=== PATIENT | male | born 1965 | race Caucasian/White ===

== ENCOUNTER 2016-06-26 05:47 | Day surgery (SDC) | payer BC ==
--- NOTE | ~2016-06-26 | EGD ---
EGD REPORT [facility] [address] [address] NAME: TIMO TERRY : 69 STATUS : REG [facility]#: [id number] AGE: 50 ADM/REG DATE : 06/26/16 MR#: [id number] REPORT SERV DATE: 06/26/16 DICTATED BY: MILY GODINEZ DATE: 06/26/16 REPORT STATUS : Draft [facility]ANSCRIBED BY: [facility] DATE: 06/26/16 Endoscopy Center Patient Name: Timo Terry Date of : 1965 Attending MD: MILY GODINEZ, Procedure Date No Time: 06/26/2016 Procedure: Upper Device-Assisted Enteroscopy without Fluoroscopy Indications: Abnormal abdominal CT Referring MD: Chandana Garcia Medicines: Monitored Anesthesia Care Complications: No immediate complications. Estimated blood loss: None. Procedure: Pre-Anesthesia Assessment: - ASA Grade Assessment: III - A patient with severe systemic disease. After obtaining informed consent, the endoscope was passed under direct vision using the balloon-assisted technique. Throughout the procedure, the patient's blood pressure, pulse, and oxygen saturations were monitored continuously. The SIF Q180 [id number] was introduced through the mouth and advanced to the mid-jejunum. Findings: The esophagus was normal. A guidewire was placed and the scope was withdrawn. Dilation was performed with a Savary dilator with no resistance at 54 Fr. A 3 cm hiatus hernia was present. Multiple 10 to 20 mm sessile polyps with no bleeding and no stigmata of recent bleeding were found in the gastric body. Biopsies were taken with a cold forceps for histology. Verification of patient identification for the specimen was done. Estimated blood loss was minimal. The exam of the stomach was otherwise normal. The examined duodenum was normal. There was no evidence of significant pathology in the proximal jejunum and in the mid-jejunum. Biopsies were taken with a cold forceps for histology. Verification of patient identification for the specimen was done. Estimated blood loss was minimal. Impression: - Normal esophagus. - Hiatus hernia. - Multiple gastric polyps. Biopsied. - Normal examined duodenum. - The examined portion of the jejunum was normal. Biopsied. Recommendation: - Return to previous diet. EGD REPORT [address] [address] NAME: TIMO TERRY : 69 STATUS : REG [facility] PAT#: [id number] AGE: 50 ADM/REG DATE : 06/26/16 MR#: [id number] REPORT SERV DATE: 06/26/16 DICTATED BY: MILY GODINEZ DATE: 06/26/16 REPORT STATUS : Draft TRANSCRIBED BY: [employer] DATE: 06/26/16 - Continue present medications. - Await pathology results. - Return to GI clinic in 3 weeks. Procedure Code(s): --- Professional --- 62767, Esophagogastroduodenoscopy, flexible, transoral; with insertion of guide wire followed by passage of dilator(s) through esophagus over guide wire 07047, Small intestinal endoscopy, enteroscopy beyond second portion of duodenum, not including ileum; with biopsy, single or multiple Diagnosis Code(s): --- Professional --- K44.9, Diaphragmatic hernia without obstruction or gangrene K31.7, Polyp of stomach and duodenum R93.3, Abnormal findings on diagnostic imaging of other parts of digestive tract CPT copyright 2013 [employer]. All rights reserved. The codes documented in this report are preliminary and upon wrapping clerk review may be revised to meet current compliance requirements. MILY GODINEZ, 06/26/2016 7:44 AM Number of Addenda: 0 Note Initiated On: 06/26/2016 7:02 AM Scope Withdrawal Time 0 hours 0 minutes 0 seconds [id number] [address]
[~2016-06-26 05:47] MED LIST: FARXIGA5 PO; GLUCOPHAGE1000 MG PO; GLUCOTRO10 PO; LYRICA150 MG PO; NEXIUM40 PO
[2016-06-27] MEDS ORDERED: GLUCOTROL5 PO (01:21)
[2016-06-27] MEDS ORDERED: LYRICA150 MG PO (01:21)
[2016-06-27] MEDS ORDERED: GLUCOPHAGE1000 MG PO (01:21)
[2016-06-27] MEDS ORDERED: NEUR100 PO (01:22)
[2016-06-27] MEDS ORDERED: NEXIUM20 M1 PO (01:22)
[2016-06-27] MEDS ORDERED: FARXIGA5 PO (01:22)
[2016-06-27] MEDS ORDERED: LINZESS 145 M145 MCG PO (01:25)
== END 2016-06-26 23:59 | disposition home or self-care (01) ==
LOC: DMU 05:47
PROVIDERS: Internal Medicine Gastroenterology
PROC: 0DBA8ZX Excision of Jejunum, Via Natural or Artificial Opening Endoscopic, Diagnostic (ICD-10-PCS; 2016-06-26)
PROC: 0D758ZZ Dilation of Esophagus, Via Natural or Artificial Opening Endoscopic (ICD-10-PCS; principal; 2016-06-26 07:00)
PROC: 0DB68ZX Excision of Stomach, Via Natural or Artificial Opening Endoscopic, Diagnostic (ICD-10-PCS; 2016-06-26 07:00)
DX: K31.7 Polyp of stomach and duodenum (principal); K44.9 Diaphragmatic hernia without obstruction or gangrene; K21.9 Gastro-esophageal reflux disease without esophagitis; E11.40 Type 2 diabetes mellitus with diabetic neuropathy, unspecified; N20.0 Calculus of kidney; Z90.49 Acquired absence of other specified parts of digestive tract; Z79.84 Long term (current) use of oral hypoglycemic drugs; Z79.899 Other long term (current) drug therapy; Z98.890 Other specified postprocedural states
CPT/HCPCS: 82962; 88305; J2405; J2543

== ENCOUNTER 2016-06-26 16:26 | Observation (INO) | payer BC ==
--- NOTE | ~2016-06-26 | DS ---
Discharge Summary [facility] [address] [place]. [address] NAME: TIMO TERRY : 69 STATUS : DIS Farhana PAT#: [id number] AGE: 50 ADM/REG DATE : 06/27/16 MR#: [id number] REPORT SERV DATE: 06/29/16 DICTATED BY: FAIZAN SABILLON DATE: 06/28/16 REPORT STATUS : Draft TRANSCRIBED BY: MODL DATE: 06/28/16 ADMISSION DATE: 06/27/2016 DISCHARGE DATE: 06/28/2016 DISCHARGE DIAGNOSES: 1. Febrile illness and likely gastroenteritis. 2. Intractable nausea and vomiting, which has resolved. 3. Diabetes type 2, hemoglobin A1c is 7.1 most recently. 4. Elevated blood pressure. 5. Status post upper endoscopy performed in 2013 with esophageal dilatation and biopsies hiatal hernia. This was performed prior to his admission. DISCHARGE MEDICATIONS: Gabapentin 800 mg p.o. three times a day, Nexium 20 mg at bedtime, Lyrica 150 mg twice a day, Glucophage 1000 mg twice a day, Glucotrol 5 mg p.o. daily, Farxiga 5 mg daily, Linzess 145 mg daily p.r.n. for constipation, lisinopril 5 mg daily, new prescription was written for this. HISTORY OF PRESENT ILLNESS: A 50-year-old male, who presented with fever, nausea, vomiting, and shaking chills, had actually had an endoscopy done earlier on the same date, 06/26/2016, but went home and had the above symptoms. Please see the initial H and P of Dr. Juan Alberto Marc, as the patient was admitted to the Hospitalist Service for further evaluation and treatment. CONSULTANTS: Consultants during this admission include Nathan Villegas nurse practitioner. IMAGING STUDIES: During this admission include a CT of the abdomen and pelvis that showed prior cholecystectomy, no evidence of bowel perforation, no other GI or obstruction, benign left renal cyst, small amount of air reflux into the esophagus, prostate normal to mildly enlarged. HOSPITAL COURSE: Initially, he was placed on some empiric antibiotic treatment and was given supportive care with regard to his nausea and vomiting with antiemetics, IV fluids, and Carafate and cultures were sent. He underwent the above-described CT of the abdomen and pelvis, which was within normal limits. His white blood cells descended back to normal range. He was afebrile. He symptomatically began to improve as well and his diet was able to be slowly advanced, which he did tolerate. His antibiotics were stopped. He did have some elevated blood pressure during this admission and have discussed at length close followup with his primary care, Dr. Garcia, and have added a low dose TOI inhibitor to his oral regimen given his history of diabetes and his elevated blood pressures. I have discussed with him at length to follow up with his primary care in relation to his overall diabetic regimen and to discuss Neurontin and Lyrica and also I have discussed doing a food journal to perhaps isolate triggers for his abdominal pain and I have given information on trialing for a gluten free diet as well. He is to follow up in two weeks with Dr. Ascencio GI, as well and please note that greater than 30 minutes was spent on this discharge for medication teaching, follow up planning, diabetic education, and nutrition education. Discharge Summary [address] [address] NAME: TIMO TERRY JULISA GRAY : 69 STATUS : DIS Farhana PAT#: [id number] AGE: 50 ADM/REG DATE : 06/27/16 MR#: [id number] REPORT SERV DATE: 06/29/16 DICTATED BY: FAIZAN SABILLON DATE: 06/28/16 REPORT STATUS : Draft TRANSCRIBED BY: RINKU DATE: 06/28/16 Questions were answered at bedside. He is in agreement with plan going forward. ANTHONY/RINKU Faizan Sabillon NP / [id number] CC: Luci Mcclelland M.D.
--- NOTE | ~2016-06-26 | HP ---
History And Physical [address] [place]. [address] NAME: TIMO TERRY SR : 69 STATUS : REG ER PAT#: [id number] AGE: 50 ADM/REG DATE : 06/26/16 MR#: [id number] REPORT SERV DATE: 06/27/16 DICTATED BY: JUAN ALBERTO LAMAR DATE: 06/27/16 REPORT STATUS : Draft TRANSCRIBED BY: MODL DATE: 06/27/16 DATE OF ADMISSION: 06/26/2016 CHIEF COMPLAINT: Fever, nausea, vomiting, and shaking chills. HISTORY OF PRESENT ILLNESS: This is a 50-year-old male, who had an endoscopy done by Dr. Reg Ascencio early on 06/26/2016 and went home, started having the above symptoms and returns to the emergency room at [facility]. History is obtained from the patient, his , who is at bedside, and reviewing data available on the [employer] system. According to Mr. Terry he had an endoscopy done this morning by Dr. Reg Ascencio and was found to have numerous gastric polyps which were biopsied with cold forceps. Then esophageal dilatation was also performed and the patient was discharged home safely. He went home, had some lunch, and was taking some rest when suddenly he started having a febrile illness. He had fever, shaking chills, and then started having intractable nausea and vomiting. They decided to come to the emergency room to be evaluated. In the emergency room, initial workup including a CT scan of the abdomen, pelvis, and chest x-ray did not reveal any acute abnormalities. The ER providers had called Dr. 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 Hospitalist Service is asked to admit him for further evaluation and treatment. At the time of my evaluation, Mr. Terry denied any chest pain, palpitations, or orthopnea. He had no cough, hemoptysis, night sweats, or weight loss. He denied any recent falls or loss of consciousness. He did have fever and chills as mentioned above along with nausea and vomiting. No diarrhea. No history of hematemesis, hematochezia, or hematuria. He did have some pain in his right flank region which he has had for a few months and was the object of the endoscopy and investigation. Nothing has changed regarding that. PAST MEDICAL HISTORY: Significant for history of diabetes mellitus, gastric polyps, and hiatal hernia. SOCIAL HISTORY: He does not smoke, drink, or use recreational drugs. FAMILY HISTORY: Noncontributory. MEDICATIONS: His medications at home were reviewed by me in the chart today and reordered by me. REVIEW OF SYSTEMS: As in history of present illness. All other systems were reviewed in detail and are quite unremarkable. PHYSICAL EXAMINATION: History And Physical [address] [address] NAME: TIMO TERRY SR : 69 STATUS : REG ER PAT#: [id number] AGE: 50 ADM/REG DATE : 06/26/16 MR#: [id number] REPORT SERV DATE: 06/27/16 DICTATED BY: JUAN ALBERTO LAMAR DATE: 06/27/16 REPORT STATUS : Draft TRANSCRIBED BY: RINKU DATE: 06/27/16 GENERAL: This is a 50-year-old not in any acute distress. HEENT: His head is atraumatic and normocephalic. He is alert, awake, oriented to time, place, and person. Pupils are equal, reacting to light and accommodating. External ocular muscles are intact. Membranes are moist and pink. Sclerae are nonicteric. NECK: Supple with no jugular venous distention, lymphadenopathy, or thyromegaly. LUNGS: Clear to auscultation with no wheezes, rubs, or crackles. HEART: Heart sounds were regular with no murmurs, rubs, or gallops. ABDOMEN: Soft and nontender. Bowel sounds are present. EXTREMITIES: No cyanosis, clubbing, or edema. NEUROLOGIC: Grossly intact. No focal sensory or motor deficits. Higher functions appeared intact. Gait was not examined. VITAL SIGNS: His temperature today was 98.2, pulse 91, respirations 10 a minute, blood pressure was 137/84, and oxygen saturations were 97%, breathing 2 L of oxygen via nasal cannula. LABORATORY DATA: Reviewed on the [employer] system showed a sodium of 137, potassium was 4.1, chloride 100, CO2 of 26, BUN was 24 with a creatinine of 0.91, and blood glucose was 212. Lipase was 83. CBC revealed a white blood cell count of 13,000. Hemoglobin and hematocrit were within normal limits, and platelet count was 138,000. Urinalysis was grossly unremarkable. Films of the CT scan of his abdomen, pelvis, and chest x-ray were reviewed by me in the PACS today and interpreted by me. Per my interpretation, there was no acute intraabdominal or pelvic pathology. Chest x-ray was within normal limits as well. IMPRESSION: 1. Febrile illness. 2. Intractable nausea and vomiting. 3. Status post endoscopy. 4. Gastric polyps. 5. Hiatal hernia. 6. Diabetes mellitus type 2 with hyperglycemia. PLAN: We will admit Mr. Terry to the Hospitalist Service with telemetry for a 24-hour observation period. Per GI recommendations we will keep him n.p.o., start him on intravenous Zosyn. We will establish pain control for his abdomen and offer Zofran and/or Phenergan on an as-needed basis for his nausea and vomiting. We will go ahead and consult GI service to see him in the morning. He will be placed on SCDs for DVT prophylaxis as well. I have discussed the above plans with the patient. His questions were answered, he and his are agreeable to the above recommendations. Please see today's orders for details. Hospitalist Service will be following him during his stay here. History And Physical [address] [address] NAME: TIMO TERRY : 69 STATUS : REG ER PAT#: [id number] AGE: 50 ADM/REG DATE : 06/26/16 MR#: [id number] REPORT SERV DATE: 06/27/16 DICTATED BY: JUAN ALBERTO LAMAR DATE: 06/27/16 REPORT STATUS : Draft TRANSCRIBED BY: RINKU DATE: 06/27/16 /RINKU Juan Alberto Lamar M.D. / [phone]
--- NOTE | ~2016-06-26 | CN ---
Consultation Report [facility] [address] [place]. [address] NAME: TIMO TERRY : 69 STATUS : ADM Farhana PAT#: [id number] AGE: 50 ADM/REG DATE : 06/27/16 MR#: [id number] REPORT SERV DATE: 06/27/16 DICTATED BY: FREDERICK MARCH DATE: 06/27/16 REPORT STATUS : Draft TRANSCRIBED BY: MODAnaid DATE: 06/27/16 GI CONSULTATION DATE OF CONSULTATION: 06/27/2016 REASON FOR CONSULTATION: Evaluation and management of nausea, vomiting, abdominal pain status post upper endoscopy on 06/26. HISTORY OF PRESENT ILLNESS: Mr. Terry is a 50-year-old male patient, known to Dr. Reg Ascencio, who underwent an EGD on 06/26/[address] findings in the outpatient setting. His EGD was done without any incident. He had findings of a normal esophagus, hiatal hernia and multiple gastric polyps, 10-28 mm, which were biopsied with cold forceps for histology. He had complaints of dysphagia and did undergo dilation of his esophagus to a 54-Maori. His duodenum was normal on examination as well as his jejunum was normal on examination, but he did get jejunal biopsies performed. He was discharged without any incident. He returned home. He states that he got home, was able to eat lunch, and was resting in the bed when he was awakened with what sounds like rigors. He had uncontrollable shaking, began to have intractable nausea, then developed vomiting as well as chronic right- sided abdominal pain, which he states worsened with all of the emesis that he experienced. He called Dr. Ascencio' office. He was directed to come to the emergency room. He states his fever at home was 99.4 at its maximum. He had a CT scan done here on admission, a contrasted exam, that showed no evidence of bowel perforation, no GI or obstruction, liver and spleen normal, evidence for cholecystectomy, normal pancreas. His white blood cell count on admission was 13.0. He was placed on broad-spectrum Zosyn. Presently, his white count is 5.3. He has not had return of fever since coming in. However, on assessment, the patient states he still has sharp, stabbing right upper quadrant abdominal pain and nausea, but no more emesis. He states that he does feel better than presentation, but is still suffering with the right-sided pain. He states that he has had some belching and he has passed some gas. He states that he had a bowel movement yesterday after arriving home from his endoscopy. PAST MEDICAL HISTORY: Diabetes, gastric polyps, hiatal hernia, dysphagia. PAST SURGICAL HISTORY: Cholecystectomy. SOCIAL HISTORY: Denies alcohol, tobacco, or illicits. He is . FAMILY HISTORY: Noncontributory. ALLERGIES: NO KNOWN ALLERGIES. HOME MEDICATIONS: Farxiga, Nexium, Neurontin, Glucotrol, Glucophage, Lyrica, Linzess. REVIEW OF SYSTEMS: Consultation Report [address] [place]. [address] NAME: TIMO TERRY SR : 69 STATUS : ADM Farhana PAT#: [id number] AGE: 50 ADM/REG DATE : 06/27/16 MR#: [id number] REPORT SERV DATE: 06/27/16 DICTATED BY: FREDERICK MARCH DATE: 06/27/16 REPORT STATUS : Draft TRANSCRIBED BY: RINKU DATE: 06/27/16 A 10-point review of systems was obtained with pertinent positives being addressed in the history of present illness. PERTINENT LABORATORY DATA: Sodium 140, potassium 4.1, BUN is 24, creatinine 0.91. White count is 5.3, hemoglobin 14.3, hematocrit 42.5, platelet count is 94. PHYSICAL EXAMINATION: VITAL SIGNS: Temperature 97.5, pulse 62, respirations 16, and blood pressure 156/87. NEURO: Reveals an alert male, sitting up in the bed, who is awake, alert, and oriented. GENERAL: He is cooperative. He is in no obvious distress. HEAD, EARS, EYES, NOSE, AND THROAT: Anicteric. Pupils equal, round, reactive to light and accommodation. Normocephalic and atraumatic. NECK: No JVD. No palpable nodes. LUNGS: Diminished bilaterally in the bases. Clear in the upper lobes with normal respiratory effort exhibited. Equal expansion. CARDIOVASCULAR SYSTEM: Regular rate and rhythm. ABDOMEN: Soft, nondistended, really nontender on palpation. No rebound, guarding, or organomegaly elicited on exam. EXTREMITIES: No edema. Normal distal pulses. SKIN: Warm, dry, and intact. ASSESSMENT: 1. Nausea and vomiting. 2. Fever and chills, status post upper endoscopy with biopsies done on 06/26/2015, question postpolypectomy syndrome. 3. Acute on chronic right upper quadrant abdominal pain. PLAN: 1. Clear liquid diet. 2. Pain and nausea medications. 3. Continue IV fluids. 4. Continue IV antibiotics. 5. Monitor status, should resolve with medical management. We will follow. REFUGIO/RINKU DINORAH Calles / [phone] Consultation Report [address] [place]. [address] NAME: TIMO TERRY : 69 STATUS : ADM Farhana PAT#: [id number] AGE: 50 ADM/REG DATE : 06/27/16 MR#: [id number] REPORT SERV DATE: 06/27/16 DICTATED BY: FREDERICK MARCH DATE: 06/27/16 REPORT STATUS : Draft TRANSCRIBED BY: RINKU DATE: 06/27/16 CC: Isaac Ya Jr, MD
[2016-06-26 18:23] LABS: BASOPHILS 0.1 %; BASOPHILS ABSOLUTE 0.01 10/3/uL (0.0-0.16); EOSINOPHILS 0.1 %; EOSINOPHILS ABSOLUTE 0.01 10/3/uL (0.0-0.53); ER CBC TAT 0 Hrs 10 Mins; HEMATOCRIT 49.9 % (40.0-51.0); HEMOGLOBIN 17.2 g/dL (13.6-17.8); IMMATURE GRANULOCYTES 0.3 %; IMMATURE GRANULOCYTES ABSOLUTE 0.04 10/3/uL (0.0-0.11); LYMPHOCYTES 5.8 %; LYMPHOCYTES ABSOLUTE 0.75 10/3/uL (0.67-4.30); MEAN CORPUS HGB CONC 34.5 g/dL (32.0-36.0); MEAN CORPUSCULAR HEMOGLOB 26.7 pg (26.0-34.0); MEAN CORPUSCULAR VOLUME 77.6 fL (80-100); MEAN PLATELET VOLUME 11.7 fL (9.2-13.0); MONOCYTES 5.5 %; MONOCYTES ABSOLUTE 0.72 10/3/uL (0.21-1.20); NEUTROPHILS 88.2 %; NEUTROPHILS ABSOLUTE 11.49 10/3/uL (2.02-8.40); PLATELET COUNT 138 10/3/uL (150-400); RBC DISTRIBUTION WIDTH 14.4 % (12.0-16.0); RED CELL COUNT 6.43 10/6/uL (4.7-6.1)
[2016-06-26 18:32] LABS: ASCORBIC ACID (UR NOT ORDER) NEG (NEG); BILIRUBIN, URINE NEGATIVE (NEG); ER URINALYSIS TAT 0 Hrs 28 Mins; KETONE, URINE TRACE MG/DL (NEG); LEUKOCYTE ESTERASE(NOT OR NEG (NEG); NITRITE (URINE) NEG (NEG); WBC (NOT ORDERED) (RFLEX) 1 (0-5)
[2016-06-26 18:35] LABS: A/G RATIO 1.2 (0.7-1.9); ALBUMIN 4.2 G/DL (3.5-5.0); ALKALINE PHOSPHATASE 89 U/L (45-117); BUN (BLOOD UREA NITROGEN) 24 MG/DL (6-23); CHLORIDE, SERUM 100 MMOL/L (96-112); CO2 (CARBON DIOXIDE) 26 MMOL/L (24-34); CREATININE 0.91 MG/DL (0.70-1.30); GFR AFRICAN AMERICAN 115 ML/MIN (>=60); GFR NON AFRICAN AMERICAN 99 ML/MIN (>=60); GLOBULIN 3.6 G/DL (2.5-4.1); GLUCOSE, SERUM 212 MG/DL (60-99); POTASSIUM, SERUM 4.1 MMOL/L (3.5-5.3); SGOT(AST) 22 U/L (5-40); SGPT(ALT) 42 U/L (5-65); SODIUM, SERUM 137 MMOL/L (135-148); TOTAL BILIRUBIN 1.4 MG/DL (0-1.2); TOTAL PROTEIN 7.8 G/DL (6.0-8.5)
[2016-06-26 19:43] LABS: MANUAL DIFF NO %
[2016-06-27] MEDS ORDERED: GLUCOPHAGE1000 MG PO (01:21)
[2016-06-27] MEDS ORDERED: GLUCOTROL5 PO (01:21)
[2016-06-27] MEDS ORDERED: LYRICA150 MG PO (01:21)
[2016-06-27] MEDS ORDERED: NEUR100 PO (01:22)
[2016-06-27] MEDS ORDERED: NEXIUM20 M1 PO (01:22)
[2016-06-27] MEDS ORDERED: FARXIGA5 PO (01:22)
[2016-06-27] MEDS ORDERED: LINZESS 145 M145 MCG PO (01:25)
[2016-06-27 09:14] LABS: BASOPHILS 0 %; EOSINOPHILS 0.6 %; EOSINOPHILS ABSOLUTE 0.03 10/3/uL (0.0-0.53); HEMOGLOBIN 14.3 g/dL (13.6-17.8); IMMATURE GRANULOCYTES 0.2 %; IMMATURE GRANULOCYTES ABSOLUTE 0.01 10/3/uL (0.0-0.11); LYMPHOCYTES 17.3 %; LYMPHOCYTES ABSOLUTE 0.91 10/3/uL (0.67-4.30); MEAN CORPUS HGB CONC 33.6 g/dL (32.0-36.0); MEAN CORPUSCULAR HEMOGLOB 26.3 pg (26.0-34.0); MEAN CORPUSCULAR VOLUME 78.3 fL (80-100); MEAN PLATELET VOLUME 11.7 fL (9.2-13.0); MONOCYTES 8.4 %; MONOCYTES ABSOLUTE 0.44 10/3/uL (0.21-1.20); NEUTROPHILS 73.5 %; NEUTROPHILS ABSOLUTE 3.86 10/3/uL (2.02-8.40); RBC DISTRIBUTION WIDTH 14.8 % (12.0-16.0); RED CELL COUNT 5.43 10/6/uL (4.7-6.1)
[2016-06-27 09:16] LABS: HEMATOCRIT 42.5 % (40.0-51.0); MANUAL DIFF NO %; PLATELET COUNT 94 10/3/uL (150-400); WHITE BLOOD CELLS 5.3 10/3/uL (4.5-10.5)
[2016-06-27 09:30] LABS: BUN (BLOOD UREA NITROGEN) 24 MG/DL (6-23); CALCIUM, SERUM 8.2 MG/DL (8.5-10.4); CHLORIDE, SERUM 104 MMOL/L (96-112); CO2 (CARBON DIOXIDE) 26 MMOL/L (24-34); CREATININE 0.91 MG/DL (0.70-1.30); GFR AFRICAN AMERICAN 115 ML/MIN (>=60); GFR NON AFRICAN AMERICAN 99 ML/MIN (>=60); GLUCOSE, SERUM 174 MG/DL (60-99); PHOSPHORUS, SERUM 2.9 MG/DL (2.5-4.5); POTASSIUM, SERUM 4.1 MMOL/L (3.5-5.3); SODIUM, SERUM 140 MMOL/L (135-148)
[2016-06-28 07:18] LABS: BASOPHILS 0 %; EOSINOPHILS 1.1 %; EOSINOPHILS ABSOLUTE 0.05 10/3/uL (0.0-0.53); HEMATOCRIT 44.8 % (40.0-51.0); HEMOGLOBIN 15.2 g/dL (13.6-17.8); IMMATURE GRANULOCYTES 0.5 %; IMMATURE GRANULOCYTES ABSOLUTE 0.02 10/3/uL (0.0-0.11); LYMPHOCYTES 15.3 %; LYMPHOCYTES ABSOLUTE 0.67 10/3/uL (0.67-4.30); MEAN CORPUS HGB CONC 33.9 g/dL (32.0-36.0); MEAN CORPUSCULAR HEMOGLOB 26.5 pg (26.0-34.0); MEAN CORPUSCULAR VOLUME 78.2 fL (80-100); MEAN PLATELET VOLUME 11.2 fL (9.2-13.0); MONOCYTES 8.7 %; MONOCYTES ABSOLUTE 0.38 10/3/uL (0.21-1.20); NEUTROPHILS 74.4 %; NEUTROPHILS ABSOLUTE 3.26 10/3/uL (2.02-8.40); PLATELET COUNT 94 10/3/uL (150-400); RBC DISTRIBUTION WIDTH 14.3 % (12.0-16.0); RED CELL COUNT 5.73 10/6/uL (4.7-6.1); WHITE BLOOD CELLS 4.4 10/3/uL (4.5-10.5)
[2016-06-28 07:20] LABS: MANUAL DIFF NO %
[2016-06-28 07:29] LABS: INTERNATIONAL NORMAL RATI 1.1 UNITS (-); PROTIME (NOT ORD) 14.2 SEC (12.0-14.5)
[2016-06-28 07:40] LABS: A/G RATIO 1.1 (0.7-1.9); ALBUMIN 3.4 G/DL (3.5-5.0); CALCIUM, SERUM 8.4 MG/DL (8.5-10.4); CHLORIDE, SERUM 105 MMOL/L (96-112); CO2 (CARBON DIOXIDE) 25 MMOL/L (24-34); CREATININE 0.78 MG/DL (0.70-1.30); GFR AFRICAN AMERICAN 124 ML/MIN (>=60); GFR NON AFRICAN AMERICAN 107 ML/MIN (>=60); GLOBULIN 3.2 G/DL (2.5-4.1); GLUCOSE, SERUM 166 MG/DL (60-99); POTASSIUM, SERUM 4.5 MMOL/L (3.5-5.3); SGOT(AST) 21 U/L (5-40); SGPT(ALT) 35 U/L (5-65); SODIUM, SERUM 139 MMOL/L (135-148); TOTAL BILIRUBIN 1.4 MG/DL (0-1.2); TOTAL PROTEIN 6.6 G/DL (6.0-8.5)
[2016-06-28 07:41] LABS: ALKALINE PHOSPHATASE 64 U/L (45-117); BUN (BLOOD UREA NITROGEN) 15 MG/DL (6-23)
[2016-06-28] MEDS ORDERED: PRIN5 PO (11:27)
== END 2016-06-28 18:09 | disposition home or self-care (01) ==
LOC: ER 16:26 → 1SO 06-27 06:49
PROVIDERS: Emergency Medicine; Internal Medicine Pulmonary Disease; Nurse Practitioner Family
PROC: 0D758ZZ Dilation of Esophagus, Via Natural or Artificial Opening Endoscopic (ICD-10-PCS; principal; 2016-06-26)
PROC: 0DBA8ZX Excision of Jejunum, Via Natural or Artificial Opening Endoscopic, Diagnostic (ICD-10-PCS; 2016-06-26)
PROC: 0DB68ZZ Excision of Stomach, Via Natural or Artificial Opening Endoscopic (ICD-10-PCS; 2016-06-26)
DX: K31.7 Polyp of stomach and duodenum (principal); K44.9 Diaphragmatic hernia without obstruction or gangrene; K21.9 Gastro-esophageal reflux disease without esophagitis; E11.65 Type 2 diabetes mellitus with hyperglycemia; E11.40 Type 2 diabetes mellitus with diabetic neuropathy, unspecified; N20.0 Calculus of kidney; Z90.49 Acquired absence of other specified parts of digestive tract; Z79.84 Long term (current) use of oral hypoglycemic drugs; Z79.899 Other long term (current) drug therapy; Z98.890 Other specified postprocedural states
CPT/HCPCS: 71010; 74177; 80048; 80053; 81001; 82962; 83690; 83735; 84100; 85025; 85610; 87040; 88305; 96374; 96375; 96376; 99285; A9270-GY; G0378; J2405; J2543; Q9967